=== PATIENT | female | born 1980 | race African-American/Black ===

== ENCOUNTER 2023-09-01 19:10 | Inpatient (IN) | payer OTHER ==
[2023-09-01 20:23] LABS: BASO % 0.3 % (0-2.0); EOS % 0.3 % (0-4.5); HEMATOCRIT 35.4 % (32.4-45.2); LYMPH % 26.2 % (8-40); MCH 29.8 pg (25.7-33.7); MEAN CELL VOLUME 87.6 fl (80-96); MEAN PLT VOLUME 9.9 fl (7.5-11.1); MONO % 7.9 % (3.8-10.2); NEUT % 65.3 % (42.8-82.8); PLATELET COUNT 222 10^3/uL (134-434); RBC 4.03 M/mm3 (3.60-5.2); WHITE BLOOD COUNT 10.1 K/mm3 (4.0-10.0)
[2023-09-01 20:29] LABS: INR 0.87 (0.83-1.09); PROTHROMBIN TIME (PATIENT) 10.1 SEC (9.7-13.0)
[2023-09-01] MEDS: ELECTROLYTE-148 SOLN 1,000 ML IV SCH ×2 (20:30→22:00)
[2023-09-01 20:32] LABS: ACTIVATED PTT 26.4 SECONDS (25.2-36.5)
[2023-09-01 20:42] LABS: POTASSIUM 3.8 mmol/L (3.5-5.1)
[2023-09-01 20:43] LABS: CALCIUM 9.1 mg/dL (8.5-10.1)
[2023-09-01 20:44] LABS: BLOOD UREA NITROGEN 9.4 mg/dL (7-18)
[2023-09-01 20:46] VITALS: BMI 33.9
[2023-09-01 20:47] LABS: CREATININE 0.9 mg/dL (0.55-1.3)
[2023-09-01] MEDS ORDERED: FENTANYL/BUPIVACAINE/NS/PF - PCEA - 50 ML DISP.SYRIN EP ONE (20:49)
[2023-09-01] MEDS ORDERED: BUPIVACAINE HCL/PF 0.25% (2.5MG/ML) 10 ML VIAL ONE (21:05)
[2023-09-01] MEDS ORDERED: LIDO 2%/EPI 1:200000 PRESRVFRE (20 ML SDVIAL) ONE (21:05)
[2023-09-01] MEDS: FENTANYL/BUPIVACAINE/NS/PF - PCEA - 50 ML DISP.SYRIN EP SCH (21:25)
[2023-09-01] MEDS ORDERED: NALOXONE HCL 0.4 MG/ML VIAL IVPUSH PRN (21:25)
[2023-09-01 21:48] LABS: HIV INTERPRETATION NEGATIVE (NEGATIVE)
[2023-09-01] MEDS ORDERED: OXYTOCIN 30 UNITS in 0.9% NS 30 UNIT/500 ML INFUS.BAG IVPB ONE (21:57)
[2023-09-01] MEDS: OXYTOCIN 30 UNITS in 0.9% NS 30 UNIT/500 ML INFUS.BAG IVPB SCH (22:00)
[2023-09-02] MEDS ORDERED: OXYTOCIN 20 UNITS in 0.9% NS 20 UNIT/1,000 ML INFUS.BAG IV ONE (01:56)
[2023-09-02] MEDS ORDERED: LIDOCAINE HCL 1% PRESERVATIVE FREE - 30ML VIAL ONE (01:56)
[2023-09-02] MEDS ORDERED: WITCH HAZEL 50% (TUCKS) 40 PAD/JAR PAD TP PRN (03:05)
[2023-09-02] MEDS ORDERED: ACETAMINOPHEN 325 MG TABLET (FP) PO PRN (03:05)
[2023-09-02] MEDS ORDERED: IBUPROFEN 600 MG TABLET (FP) PO PRN (03:05)
[2023-09-02] MEDS ORDERED: oxyCODONE HCL 5 MG TABLET PO PRN (03:05)
[2023-09-02] MEDS ORDERED: BENZOCAINE 28 GM HEMORRHOIDAL OINTMENT TP PRN (03:05)
[2023-09-02] MEDS ORDERED: BISACODYL 10 MG SUPP.RECT RC PRN (03:05)
[2023-09-02] MEDS ORDERED: BENZOCAINE 20% 57 GM BOTTLE TP PRN (03:05)
[2023-09-02] MEDS ORDERED: METHYLERGONOVINE MALEATE 0.2 MG/1 ML AMP IM PRN (03:05)
[2023-09-02] MEDS: OXYTOCIN 20 UNITS in 0.9% NS 20 UNIT/1,000 ML INFUS.BAG IV SCH (03:30)
[2023-09-02] MEDS: FERROUS SO4 325 MG TABLET (FP) PO ONE (10:09)
[2023-09-02] MEDS: PRENATAL VITAMINS W/ FOLIC ACID TABLET (FP) PO SCH (10:09)
[2023-09-02] MEDS: DIPHTH,PERTUSS(ACELL),TET 0.5 ML DISP.SYRIN IM ONE (14:11)
[2023-09-03 07:26] LABS: BASO % 0.2 % (0-2.0); EOS % 0.2 % (0-4.5); HEMATOCRIT 32.9 % (32.4-45.2); HEMOGLOBIN 10.8 GM/dL (10.7-15.3); LYMPH % 21.8 % (8-40); MCH 29.1 pg (25.7-33.7); MCHC 32.7 g/dl (32.0-36.0); MEAN PLT VOLUME 10.3 fl (7.5-11.1); MONO % 6.3 % (3.8-10.2); NEUT % 71.5 % (42.8-82.8); PLATELET COUNT 213 10^3/uL (134-434); RDW 15.5 % (11.6-15.6); WHITE BLOOD COUNT 14.8 K/mm3 (4.0-10.0)
[2023-09-03] MEDS ORDERED: SENNOSIDES/DOCUSATE COMBO (SENNA PLUS) TABLET (UD) PO PRN (22:00)
[2023-09-04 09:44] VITALS: BP 120/84; PULSE 93; RESP 16; TEMP 97.8
== END 2023-09-04 10:00 | disposition home or self-care (01) | DRG 807 ==
LOC: JLDR 19:10 → J3W 09-02 05:43
PROVIDERS: ADMIT Obstetrics & Gynecology; ATTEND Obstetrics & Gynecology
PROC: 10E0XZZ Delivery of Products of Conception, External Approach (ICD-10-PCS; principal; 2023-09-02)
PROC: 0W8NXZZ Division of Female Perineum, External Approach (ICD-10-PCS; 2023-09-02)
PROC: 3E0334Z Introduction of Serum, Toxoid and Vaccine into Peripheral Vein, Percutaneous Approach (ICD-10-PCS; 2023-09-02)
DX: O36.0930 Maternal care for other rhesus isoimmunization, third trimester, not applicable or unspecified (principal); Z37.0 Single live birth; Z3A.39 39 weeks gestation of pregnancy
CPT/HCPCS: 36415; 80048; 85025; 85461; 85610; 85730; 86780; 86850; 86900; 86901; 87389; 90715; 96372; J2790